=== PATIENT | female | born 1980 ===

== ENCOUNTER 2017-12-09 07:06 | Emergency (ER) | payer SELFPAY ==
--- NOTE | 2017-12-09 15:13 | UC ---
Doreen Almanza Nilda, scribed for Viola Gonzalez DO on 12/09/17 at 0744 . FLU HPI - HPI Summary HPI Summary: This patient is a 37 year old F presenting to [facility] with a chief complaint of constant flu-like symptoms for the past 4 days. Symptoms aggravated by nothing, and alleviated mildly by OTC medication. Pt states she has been treating herself with Tylenol, Mucinex, and Emergen-C vitamin packets. Patient reports sore throat (3/10 severity), headache (4/10 in severity), myalgia, fever, diaphoresis, mild cough, sinus congestion (light yellow mucous) and sinus pressure. Patient denies N/V, rash, urinary symptoms, and ear pain. Pt states she may have seasonal allergies. - History of Current Complaint Chief Complaint: UCRespiratory Stated Complaint: HEADACHE Time Seen by Provider: 12/09/17 07:26 Hx Obtained From: Patient Hx Last Menstrual Period: 2 weeks Onset/Duration: Sudden Onset, Lasting Days, Still Present Severity Initially: Moderate Pain Intensity: 4 Pain Scale Used: 0-10 Numeric Associated Signs & Symptoms: Positive: Fever, Myalgia, Cough, Sore Throat, Nasal Congestion, Headache. Negative: Vomiting, Diarrhea - Allergy/Home Medications Allergies/Adverse Reactions: Allergies Allergy/AdvReac Type Severity Reaction Status Date / Time No Known Allergies Allergy Verified 12/09/17 07:12 Home Medications: Home Medications Acetaminophen [Tylenol] 650 mg PO Q6HR PRN 12/09/17 [History Confirmed 12/09/17] Calcium Ascorbate [Vitamin C] 500 mg PO DAILY 12/09/17 [History Confirmed ] Dextromethorphan-Guaifenesin [Mucinex Dm Maximum Streng 60-1200 mg] 1 tab PO Q8HR PRN 12/09/17 [History Confirmed 12/09/17] Multiple Vitamins W/ Minerals [Multivitamin Women] 1 tab PO DAILY 12/09/17 [ History Confirmed 12/09/17] PMH/Surg Hx/FS Hx/Imm Hx - Additional Past Medical History Additional PMH: PMHx allergies Previously Healthy: Yes - Surgical History Surgical History: None - Family History Known Family History: Negative: Cardiac Disease, Hypertension, Diabetes - Social History Alcohol Use: None Substance Use Type: None Smoking Status (MU): Never Smoked Tobacco Review of Systems Constitutional: Fever Skin: Other - diaphoresis; negative rash ENT: Sore Throat, Sinus Congestion, Sinus Pain/Tenderness, Other - negative ear pain Respiratory: Cough Gastrointestinal: Other - negative N/V Genitourinary: Other - negative urinary symptoms Musculoskeletal: Myalgia Neurological: Headache All Other Systems Reviewed And Are Negative: Yes Physical Exam Triage Information Reviewed: Yes Appearance: Well-Appearing, No Pain Distress, Well-Nourished Vital Signs: Initial Vital Signs Temp 98.6 F 12/09/17 07:15 Pulse 109 12/09/17 07:15 Resp 18 12/09/17 07:15 BP 136/81 12/09/17 07:15 Pulse Ox 99 12/09/17 07:15 Vital Signs Reviewed: Yes Eyes: Positive: Conjunctiva Clear. Negative: Discharge ENT: Positive: Hearing grossly normal, Pharynx normal, TMs normal, Sinus tenderness, Other - Nasal mucosa pale and boggy with some erythema, tender maxillary sinuses, sub orbital congestion. Negative: Tonsillar swelling, Tonsillar exudate, Trismus, Muffled voice, Hoarse voice Neck exam: Normal Neck: Positive: Supple Respiratory: Positive: Lungs clear, Normal breath sounds, No respiratory distress, No accessory muscle use Cardiovascular: Positive: RRR, No Murmur Abdomen Description: Positive: Nontender, Soft. Negative: Distended, Guarding Bowel Sounds: Positive: Present Musculoskeletal Exam: Normal Neurological: Positive: Alert, Muscle Tone Normal Psychological Exam: Normal Psychological: Positive: Age Appropriate Behavior Skin Exam: Normal Skin: Positive: Other - Warm, Dry, Normal color Flu Course/Dx - Course Course Of Treatment: This patient is a 37 year old F presenting to [facility] with a chief complaint of constant flu-like symptoms for the past 4 days. The patient rates the aching pain 5/10 in severity. Symptoms aggravated by and alleviated mildly by OTC medication. Pt states she has been treating herself with Tylenol, Mucinex, and Emergen-C vitamin packets. Patient reports sore throat (3/10 severity), headache (4/10), myalgia, fever, diaphoresis, sinus congestion ( light yellow mucous) and sinus pressure. Patient denies N/V, rash, urinary symptoms, and ear pain. Patient will be discharged with prescription for Augmentin and follow up from PCP and Germaine Bailey (Thong). The patient is agreeable with this plan. Medications reviewed. Allergies reviewed. High blood pressure noted. Pt will be Dx with elevated blood pressure without diagnosis of hypertension, sinusitis, and allergies. - Differential Dx/Diagnosis Provider Diagnoses: Elevated blood pressure without diagnosis of hypertension, sinusitis, allergies Discharge - Discharge Plan Condition: Stable Disposition: HOME Prescriptions: Amoxicillin/Clavulanate TAB* [Augmentin TAB 875*] 875 mg PO BID #20 tab guaiFENesin ER TAB [Mucinex*] 600 mg PO BID PRN #1 box PRN Reason: Cough Patient Education Materials: Sinusitis (ED), Allergies (ED) Forms: *Work Release Referrals: [facility]ERR[facility] [Outside] - 3 Days Additional Instructions: ANTIBIOTICS ARE NOT CURRENTLY INDICATED FOR YOUR CONDITION. HOWEVER, IF YOUR SYMPTOMS WORSEN OR PERSIST FOR OVER THE NEXT 3-5 DAYS, YOU CAN TAKE THE FOLLOWING MEDICATION: AUGMENTIN: Augmentin is a mixture of amoxicillin and clavulanate. Amoxicillin is a member of the penicillin family. It covers the germs likely to cause ear, bronchial, and urinary infections better than plain penicillin. The addition of clavulanate allows it to cover staph infections of the skin, as well as resistant cases of ear and sinus infections. Your physician has chosen Augmentin for you because of the special nature of your situation. Augmentin is best taken with meals. Nausea after taking the medication is rare, but can occur. Diarrhea can occur, particularly in small children. Vaginal yeast infections, and oral thrush in infants are also common. Contact your physician if these problems occur. Allergy to penicillins is common. If you have had an allergic reaction to any drug of the penicillin family, you should never take any other penicillin. Notify your doctor at once if you develop hives, shortness of breath, swelling, or faintness. ANYTIME YOU TAKE AN ANTIBIOTIC, IT IS IMPORTANT TO REPLENISH THE BODY'S SUPPLY OF "GOOD BACTERIA." YOU CAN GET GOOD BACTERIA FROM HIGH QUALITY CULTURED FOODS SUCH LOCAL YOGURT, SOUR KRAUT, PIERRE JACK, NATURALLY FERMENTED PICKLES AND PROBIOTIC DRINKS. YOU CAN ALSO GET GOOD BACTERIA FROM A PROBIOTIC SUPPLEMENT. EXPECTORANT MEDICATION: WE SENT IN A SCRIPT FOR MUCINEX SO THAT IT IS EASIER FOR YOU TO PICK THE RIGHT MED AT THE PHARMACY. HOWEVER, YOU CAN ALSO GO TO THE [employer] [facility] AND BUY PLAIN GUAIFENESIN WITHOU BINDERS OR FILLERS. An expectorant medicine has been prescribed. This type of drug makes mucous thinner, helping the sinuses, nose, and bronchial tubes to remain free of pus and mucous. Expectorants make a cough less severe and more comfortable, and help infected sinuses drain. In general, antihistamines defeat the purpose of the expectorant by making mucous thicker. They should be avoided unless specifically recommended by your physician. Your blood pressure was elevated at this visit. That does not mean you have hypertension, it is probably due to your current condition. Please follow up with your primary care provider. The documentation as recorded by the Doreen rodriguez Nilda accurately reflects the service I personally performed and the decisions made by me, Viola Gonzalez DO.
== END 2017-12-09 08:15 | disposition home or self-care (01) ==
LOC: UCEAST 07:06
DX: J32.9 Chronic sinusitis, unspecified (principal); J30.9 Allergic rhinitis, unspecified; R03.0 Elevated blood-pressure reading, without diagnosis of hypertension
CPT/HCPCS: 99202; G0463

== ENCOUNTER 2019-08-07 11:34 | Emergency (ER) | payer OTHER ==
[2019-08-07 12:04] VITALS: BP 121/79
--- NOTE | 2019-08-07 13:07 | UC ---
UC General HPI - HPI Summary HPI Summary: 2 WEEKS OF LEFT JAW PAIN. WORSE WHEN YAWNING AND CHEWING FOOD. OVER THE PAST 2 DAYS HAS ALSO DEVELOPED SOME SHOULDER PAIN AND HEADACHE. ADVIL HELPS. - History of Current Complaint Chief Complaint: UCGeneralIllness Stated Complaint: BODYACHES Time Seen by Provider: 08/07/19 12:08 Hx Obtained From: Patient Hx Last Menstrual Period: 07/31/19 Onset/Duration: Gradual Onset, Lasting Weeks, Still Present Onset Severity: Moderate Current Severity: Moderate Pain Intensity: 0 - Allergy/Home Medications Allergies/Adverse Reactions: Allergies Allergy/AdvReac Type Severity Reaction Status Date / Time No Known Allergies Allergy Verified 08/07/19 11:56 Home Medications: Home Medications Ibuprofen TAB* [Advil TAB*] 200 mg PO Q6H PRN 08/07/19 [History Confirmed ] PMH/Surg Hx/FS Hx/Imm Hx Previously Healthy: Yes - Surgical History Surgical History: None - Family History Known Family History: Negative: Cardiac Disease, Hypertension, Diabetes - Social History Alcohol Use: None Substance Use Type: None Smoking Status (MU): Never Smoked Tobacco Review of Systems All Other Systems Reviewed And Are Negative: Yes Constitutional: Positive: Negative Skin: Positive: Negative ENT: Positive: Negative Respiratory: Positive: Negative Cardiovascular: Positive: Negative Gastrointestinal: Positive: Negative Musculoskeletal: Positive: Arthralgia Neurological: Positive: Headache Physical Exam Triage Information Reviewed: Yes Appearance: Well-Appearing, No Pain Distress, Well-Nourished Vital Signs: Initial Vital Signs Temp 99.1 F 08/07/19 11:58 Pulse 74 08/07/19 11:58 Resp 18 08/07/19 11:58 BP 121/79 08/07/19 11:58 Pulse Ox 100 08/07/19 11:58 Vital Signs Reviewed: Yes Eyes: Positive: Conjunctiva Clear ENT: Positive: Hearing grossly normal, Pharynx normal, TMs normal Dental: Negative: Gross Decay/Caries @, Abscess @ Neck: Positive: Supple, Nontender, No Lymphadenopathy Respiratory: Positive: No respiratory distress, No accessory muscle use Cardiovascular: Positive: Pulses Normal Abdomen Description: Positive: Soft Musculoskeletal: Positive: ROM Intact, No Edema, Other: - TTP LEFT TMJ Neurological: Positive: Alert Psychological: Positive: Age Appropriate Behavior Skin: Negative: Rashes Course/Dx - Course Course Of Treatment: PATIENT SYMPTOMS CONSISTENT WITH TMJ OF THE LEFT SIDE. OTC ANALGESICS ARE HELPING. ADVISED TO CONTINUE THIS AND TRY TO REST HER JAW. AVOID LARGE BITES OF FOOD. TRY TO EAT SOFTER FOODS. FOLLOW-UP WITH TMJ SPECIALIST. HEADACHE AND SHOULDER PAIN LIKELY REFERRED PAIN HOWEVER ADVISED TO SEEK FOLLOW-UP IF THESE SYMPTOMS CHANGE OR WORSEN. - Diagnoses Provider Diagnosis: TMJ tenderness, left Discharge ED - Sign-Out/Discharge Documenting (check all that apply): Patient Departure All imaging exams completed and their final reports reviewed: No Studies - Discharge Plan Condition: Stable Disposition: HOME Patient Education Materials: Temporomandibular Disorder (ED) Forms: *Work Release Referrals: [facility] [Outside] - If Needed Additional Instructions: What are temporomandibular joint disorders? Temporomandibular joint disorders are problems with the jaw joint and the muscles around it. The jaw joint, called the temporomandibular joint, is located in front of the ear where the jawbone connects to your head. To feel the joint, place your finger on your cheek just in front of your ear and then open and close your mouth. When doctors refer to temporomandibular joint disorders, they often call it TMJ , for short. TMJ can be caused by many problems, including arthritis. More often it is due to a combination of stress, jaw clenching, teeth grinding, and other things that strain the jaw joint and the muscles around it. What are the symptoms of TMJ? The main symptom of TMJ is a dull pain in the jaw muscles that doesnt go away. The pain is often on just one side of the face , near the ear. Sometimes the pain also affects the ear, jaw, or back of the neck. It is usually worse when chewing. Some people just have headaches with TMJ. Others might hear a clicking or popping sound or have a crunchy feeling in the joint when they open and close their mouth. The most common presenting signs and symptoms are: - Pain (96.1 percent) - Ear discomfort or dysfunction (82.4 percent) - Headache (79.3 percent) - TMJ discomfort or dysfunction (75.0 percent) Should I see a doctor or nurse? If the pain in your face or jaw is bothering you and does not go away, you should see your doctor or nurse. What tests might I need? There is no single test that can show if you have TMJ. Your doctor or nurse should be able to tell if you have TMJ by learning about your symptoms and doing an exam. Unless the doctor finds something unusual in the exam, most patients will NOT need X-rays or an MRI (an imaging test that creates pictures of the inside of your body). How is TMJ treated? No single treatment for TMJ works for everyone. Most of the time, medicines and simple lifestyle changes can help. Most patients get better over time, even without treatment, so patience is important. Your doctor or nurse will help you find the right mix of treatments for you. He or she might refer you to a dentist who specializes in TMJ. Treatment options include: - Medicines to relieve pain and relax the muscles There are several types of medicines used to treat TMJ. These include nonsteroidal antiinflammatory drugs ( NSAIDs), muscle relaxants, and certain medicines used for depression. ( Medicines for depression can relieve pain even in people who are not depressed. ) Your doctor will decide which medicine or group of medicines is best for you. - Jaw exercises There are simple jaw exercises that seem to help some people. Ask your doctor to show you how to do them. - Bite plates/splints These are special devices that fit in your mouth and keep you from grinding your teeth at night. They are made out of either a hard or soft plastic and might be made specially to fit your mouth. If you have sleep apnea, be sure to tell your doctor as the bite plate or splint might make your sleep apnea worse. If these treatments dont help, your doctor might suggest that you see a specialist, such as an oral surgeon. The specialist might use medicines given by injection (shots) to treat the pain. It is rare that people need surgery for TMJ. Is there anything I can do on my own to feel better? Yes. You might feel better if you: - Avoid doing things that make the pain worse, such opening your mouth too wide. - Eat soft foods that dont require a lot of chewing. - Practice relaxing You can learn methods to relax your body, such as doing deep breathing exercises. Ask your doctor or nurse about these methods. Relaxing the mind can help with how the body feels pain. People can learn to quiet their pain or make it less bothersome. - Use ice packs to ease the pain Use a bag of ice, bag of frozen peas, or cold gel pack once every 2 hours, for 20 minutes each time. Put a towel or cloth between the ice and your skin. Do not put the ice directly on your skin. - Put heat on the painful area Wet a clean washcloth with warm water and put it on the area. When the washcloth cools, reheat it with warm water and put it back on. Repeat these steps for 10 to 15 minutes every few hours. - Avoid stimulants, such as coffee, tea, rita, or decongestant medicines, since these can make your anxiety worse. TMJ SPECIALIST DR. MICHAEL OLIVIER, [place] [address] [place] [address] THE FOLLOWING OFFICES MAY ALSO OFFER TMJ SERVICES: [facility] [address] [place] [address] [facility] Yuval Belle Jr., D.D.S. [address] [facility], [address] [place] [address] [facility] Italo Castillo DDS [address], [place] [address] - Billing Disposition and Condition Condition: STABLE Disposition: Home
== END 2019-08-07 12:55 | disposition home or self-care (01) ==
LOC: UCEAST 11:34
DX: R68.84 Jaw pain (principal)
CPT/HCPCS: 99211; G0463